=== PATIENT | male | born 1940 | race Caucasian/White ===

== ENCOUNTER 2018-11-07 17:52 | Emergency (ER) | payer MEDICARE ==
[~2018-11-07] VITALS: Ht 170.2 cm; Wt 72.7 kg
[~2018-11-07 17:52] MED LIST: AMLO-511 PO; ASPI81 PO; DOXA2TAB PO; LOSA1TAB37 PO; LOVA20 PO; METF-960 PO; OMEP20 PO
[2018-11-07 18:04] LABS: GLUCOSE,POINT OF CARE 165 MG/DL (70-110)
[2018-11-07] MEDS ORDERED: POLYMYXIN B/TRIMETHOPRIM 10 ML OPHTHALMIC SOLUTION OS ONE (18:30)
[2018-11-07] MEDS ORDERED: HYPROMELLOSE 0.5% 15 ML OPHTHALMIC SOLUTION OS ONE (18:30)
[2018-11-07 18:50] VITALS: BP 139/75
== END 2018-11-07 19:05 | disposition home or self-care (01) ==
LOC: EMS 17:52
DX: T15.12XA Foreign body in conjunctival sac, left eye, initial encounter (principal); E11.9 Type 2 diabetes mellitus without complications; E78.00 Pure hypercholesterolemia, unspecified; I10 Essential (primary) hypertension; F17.210 Nicotine dependence, cigarettes, uncomplicated; Z79.899 Other long term (current) drug therapy; X58.XXXA Exposure to other specified factors, initial encounter; Y93.89 Activity, other specified; Y92.89 Other specified places as the place of occurrence of the external cause; Y99.8 Other external cause status
CPT/HCPCS: 99406